=== PATIENT | female | born 1980 | race Two or more races ===

== ENCOUNTER → 2024-02-26 | Outpatient (CLI) | payer MEDICAID | END | disposition home or self-care (01) | LOC: XYW 10:50 | PROVIDERS: ATTEND Internal Medicine | DX: R07.9 Chest pain, unspecified (principal); E66.9 Obesity, unspecified | CPT/HCPCS: 93306 ==

== ENCOUNTER → 2024-03-14 | Outpatient (CLI) | payer MEDICAID ==
[~2024-03-14] VITALS: Ht 157.5 cm; Wt 95.3 kg
[2024-03-14 08:43] VITALS: BP 131/64; PULSE 76; RESP 14
--- NOTE | 2024-03-14 09:00 | DVHCARD ---
Cardiology Stress Test [place] Treadmill Stress Test [place] Referring MD: MD Thomas Protocol: Steven (without cardiolite) Reason for referral: Shortness of breath Target heart Rate:@85%: 148 Percent MPHR: 175 METS: 10.10 Resting Heart rate: 76 Resting Blood Pressure: 131/64 Exercise Heart Rate: 142 Exercise Blood Pressure: 205/49 Reason for Termination of Test: Completion of Protocol Baseline EKG: NSR Stress EKG: Sinus tachycardia wi/o discernible ST changes Functional Capacity: Good Normal Heart Rate Response: Adequate Blood Pressure Response: Hypertensive Clinical response: Non-ischemic Arrhythmia?: No Cardiolite Injected?: No ST-T Changes: Non/Minimal Probability of Inducible Ische: Low Comments: Uneventful Steven protocol. Date of Service: Mar 14, 2024 Billing Provider: OSVALDO DAIVDSON MD Cardiology Common Codes: PROCEDURE ONLY Treadmill w/o Cardiolite: [id number], INTERP, RPT DARRICK SRIVASTAVA Mar 14, 2024 09:00
== END | disposition home or self-care (01) ==
LOC: XYW 08:22
PROVIDERS: ATTEND Internal Medicine
DX: R07.9 Chest pain, unspecified (principal); R06.02 Shortness of breath
CPT/HCPCS: 93017